=== PATIENT | female | born 1965 | race Caucasian/White ===

== ENCOUNTER → 2023-09-20 09:10 | Outpatient (REF) | payer OTHER, SELFPAY ==
[2023-09-20 20:17] LABS: Rubella Positive
[2023-09-20 20:31] LABS: Hepatitis B Surface Antibody Indeterminate
[2023-09-22 17:26] LABS: Quantiferon Mitogen minus NIL 3.73 IU/mL; Quantiferon NIL 0.02 IU/mL; Quantiferon TB Gold Plus Negative (Negative)
== END ==
LOC: OHS 09:10
PROVIDERS: ATTENDING PHYSICIAN Nurse Practitioner Family
DX: Z23 Encounter for immunization (principal)
CPT/HCPCS: 36415; 86480; 86706; 86735; 86762; 86765; 86787

== ENCOUNTER → 2023-11-14 08:36 | Outpatient (REF) | payer BC, SELFPAY ==
[2023-11-14 10:52] LABS: HDL Cholesterol 54 mg/dl; LDL Cholesterol, Calculated 98 mg/dl; Total Cholesterol 180 mg/dl (50-199); Triglyceride 142 mg/dl (10-149); Very Low Density Lipoprotein 28 mg/dl (0-30)
[2023-11-14 11:20] LABS: TSH Reflex To Free T4 1.21 uIU/ml (0.47-4.68)
== END ==
LOC: REG 08:36
PROVIDERS: ATTENDING PHYSICIAN Family Medicine
DX: Z13.29 Encounter for screening for other suspected endocrine disorder (principal)
CPT/HCPCS: 36415; 80061; 84443

== ENCOUNTER → 2023-12-14 12:15 | Outpatient (REF) | payer OTHER, SELFPAY ==
[2023-12-14 15:25] LABS: Hepatitis B Surface Antibody Positive
== END ==
LOC: OHS 12:15
PROVIDERS: ATTENDING PHYSICIAN Nurse Practitioner Family
DX: Z23 Encounter for immunization (principal)
CPT/HCPCS: 36415; 86706

== ENCOUNTER → 2024-02-04 16:58 | Outpatient (REF) | payer OTHER, SELFPAY ==
[2024-02-04 17:37] LABS: % Basophils 0.7 % (0-2); % Eosinophils 1.5 % (0-6); % Immature Granulocytes 0.2 % (0-0.5); % Lymphocytes 32.3 % (20.5-51.1); % Monocytes 6.2 % (1.7-9.3); % Neutrophils 59.1 % (42.2-75.2); Absolute Basophils 0.1 10^3/uL (0-0.2); Absolute Eosinophils 0.1 10^3/uL (0-0.7); Absolute Lymphocytes 2.9 10^3/uL (1.2-3.4); Absolute Monocytes 0.6 10^3/uL (0.1-0.6); Absolute Neutrophils 5.3 10^3/uL (1.4-6.5); Hematocrit 34.7 % (37.0-47.0); Hemoglobin 11.3 g/dL (12.0-16.0); Mean Corp Hgb Conc. 32.6 g/dL (33.0-37.0); Mean Corpuscular Hgb 27.8 pg (27.0-31.0); Mean Corpuscular Volume 85.5 fL (81.0-99.0); Mean Platelet Volume 9.9 fL (7.4-10.4); Nucleated Red Blood Cells % 0 %; Platelet Count 296 10^3/uL (130-400); Red Blood Cell Count 4.06 10^6/uL (4.20-5.40); Red Cell Dist. Width 13.2 % (11.5-14.5); White Blood Cell Count 8.9 10^3/uL (4.8-10.8)
[2024-02-04 18:01] LABS: ALT (SGPT) 16 U/L (0-35); AST (SGOT) 18 U/L (14-36); Albumin 4.3 g/dl (3.5-5.0); Alkaline Phosphatase 62 U/L (38-126); Blood Urea Nitrogen 12 mg/dl (7-17); Calcium 9.4 mg/dl (8.4-10.2); Carbon Dioxide 30 mmol/L (22-30); Chloride 101 mmol/L (98-107); Glucose 86 mg/dl (70-99); Potassium 4.2 mmol/L (3.5-5.1); Sodium 144 mmol/L (135-145); Total Bilirubin 0.3 mg/dl (0.2-1.3); Total Protein 6.8 g/dl (6.3-8.2); eGFR > 60.00
[2024-02-04 18:15] LABS: Vitamin D, 25-OH*** 28.6 ng/mL (30-80)
== END ==
LOC: REG 16:58
PROVIDERS: ATTENDING PHYSICIAN Internal Medicine Rheumatology
DX: M35.3 Polymyalgia rheumatica (principal); M79.7 Fibromyalgia; M81.0 Age-related osteoporosis without current pathological fracture; Z51.81 Encounter for therapeutic drug level monitoring; Z68.35 Body mass index [BMI] 35.0-35.9, adult
CPT/HCPCS: 36415; 80053; 82306; 85025

== ENCOUNTER → 2024-03-11 17:08 | Outpatient (REF) | payer BC, SELFPAY | LOC: RAD 17:08 | PROVIDERS: ATTENDING PHYSICIAN Nurse Practitioner | DX: R30.0 Dysuria (principal); M54.9 Dorsalgia, unspecified | CPT/HCPCS: 74019 ==

== ENCOUNTER → 2024-03-18 17:11 | Outpatient (REF) | payer BC, SELFPAY ==
[2024-03-18 18:06] LABS: ALT (SGPT) 18 U/L (0-35); AST (SGOT) 20 U/L (14-36); Albumin 4.4 g/dl (3.5-5.0); Alkaline Phosphatase 58 U/L (38-126); Blood Urea Nitrogen 14 mg/dl (7-17); Calcium 9.5 mg/dl (8.4-10.2); Carbon Dioxide 29 mmol/L (22-30); Chloride 100 mmol/L (98-107); Glucose 97 mg/dl (70-99); Potassium 4.5 mmol/L (3.5-5.1); Sodium 140 mmol/L (135-145); Total Bilirubin 0.2 mg/dl (0.2-1.3); eGFR > 60.00
[2024-03-18 18:07] LABS: % Basophils 0.6 % (0-2); % Eosinophils 1.3 % (0-6); % Immature Granulocytes 0.2 % (0-0.5); % Lymphocytes 32.3 % (20.5-51.1); % Monocytes 5.8 % (1.7-9.3); % Neutrophils 59.8 % (42.2-75.2); Absolute Basophils 0.1 10^3/uL (0-0.2); Absolute Eosinophils 0.1 10^3/uL (0-0.7); Absolute Lymphocytes 2.7 10^3/uL (1.2-3.4); Absolute Monocytes 0.5 10^3/uL (0.1-0.6); Absolute Neutrophils 4.9 10^3/uL (1.4-6.5); Hematocrit 34.5 % (37.0-47.0); Hemoglobin 11.5 g/dL (12.0-16.0); Mean Corp Hgb Conc. 33.3 g/dL (33.0-37.0); Mean Corpuscular Hgb 28.1 pg (27.0-31.0); Mean Corpuscular Volume 84.4 fL (81.0-99.0); Mean Platelet Volume 9.8 fL (7.4-10.4); Nucleated Red Blood Cells % 0 %; Platelet Count 320 10^3/uL (130-400); Red Blood Cell Count 4.09 10^6/uL (4.20-5.40); Red Cell Dist. Width 13.2 % (11.5-14.5); White Blood Cell Count 8.2 10^3/uL (4.8-10.8)
[2024-03-19 08:55] LABS: Glycohemoglobin (HgbA1c) 5.8 % (4.0-5.6)
== END ==
LOC: REG 17:11
PROVIDERS: ATTENDING PHYSICIAN Internal Medicine Endocrinology, Diabetes & Metabolism
DX: R73.03 Prediabetes (principal)
CPT/HCPCS: 36415; 80053; 83036; 85025

== ENCOUNTER → 2024-05-19 17:10 | Outpatient (REF) | payer BC, SELFPAY ==
[2024-05-19 17:47] LABS: % Basophils 0.6 % (0-2); % Eosinophils 1.2 % (0-6); % Immature Granulocytes 0.1 % (0-0.5); % Lymphocytes 30.7 % (20.5-51.1); % Monocytes 5.9 % (1.7-9.3); % Neutrophils 61.5 % (42.2-75.2); Absolute Basophils 0.1 10^3/uL (0-0.2); Absolute Eosinophils 0.1 10^3/uL (0-0.7); Absolute Lymphocytes 2.7 10^3/uL (1.2-3.4); Absolute Monocytes 0.5 10^3/uL (0.1-0.6); Absolute Neutrophils 5.5 10^3/uL (1.4-6.5); Hematocrit 35.9 % (37.0-47.0); Hemoglobin 11.6 g/dL (12.0-16.0); Mean Corp Hgb Conc. 32.3 g/dL (33.0-37.0); Mean Corpuscular Hgb 28.4 pg (27.0-31.0); Nucleated Red Blood Cells % 0 %; Platelet Count 319 10^3/uL (130-400); Red Blood Cell Count 4.08 10^6/uL (4.20-5.40); Red Cell Dist. Width 13.2 % (11.5-14.5); White Blood Cell Count 8.9 10^3/uL (4.8-10.8)
[2024-05-19 17:59] LABS: ALT (SGPT) 18 U/L (0-35); AST (SGOT) 21 U/L (14-36); Albumin 4.3 g/dl (3.5-5.0); Alkaline Phosphatase 65 U/L (38-126); Blood Urea Nitrogen 12 mg/dl (7-17); Calcium 9.2 mg/dl (8.4-10.2); Carbon Dioxide 31 mmol/L (22-30); Chloride 101 mmol/L (98-107); Glucose 112 mg/dl (70-99); Iron 75 ug/dl (37-170); Potassium 4.2 mmol/L (3.5-5.1); Sodium 138 mmol/L (135-145); Total Bilirubin 0.2 mg/dl (0.2-1.3); Total Protein 6.8 g/dl (6.3-8.2); eGFR > 60.00
[2024-05-19 18:08] LABS: Percent Saturation 25 % (20-50); Total Iron Binding Capacity 299 ug/dl (265-497)
[2024-05-19 18:32] LABS: Ferritin 65.9 ng/ml (11.1-264.0)
== END ==
LOC: REG 17:10
PROVIDERS: ATTENDING PHYSICIAN Internal Medicine Rheumatology; FAMILY PHYSICIAN Nurse Practitioner
DX: E55.9 Vitamin D deficiency, unspecified (principal); M35.3 Polymyalgia rheumatica; M47.812 Spondylosis without myelopathy or radiculopathy, cervical region; M54.50 Low back pain, unspecified; M79.7 Fibromyalgia; M81.0 Age-related osteoporosis without current pathological fracture; Z51.81 Encounter for therapeutic drug level monitoring
CPT/HCPCS: 36415; 80053; 82728; 83540; 83550; 85025

== ENCOUNTER → 2024-05-22 07:17 | Outpatient (REF) | payer BC, SELFPAY | LOC: HWRAD 07:17 | PROVIDERS: ATTENDING PHYSICIAN Neurological Surgery; FAMILY PHYSICIAN Family Medicine | DX: M47.812 Spondylosis without myelopathy or radiculopathy, cervical region (principal); Z98.1 Arthrodesis status | CPT/HCPCS: 72125 ==

== ENCOUNTER → 2024-08-29 06:51 | Outpatient (REF) | payer BC, SELFPAY ==
[2024-08-29 09:58] LABS: % Basophils 0.9 % (0-2); % Eosinophils 1.3 % (0-6); % Immature Granulocytes 0.1 % (0-0.5); % Lymphocytes 26.8 % (20.5-51.1); % Monocytes 5.2 % (1.7-9.3); % Neutrophils 65.7 % (42.2-75.2); Absolute Basophils 0.1 10^3/uL (0-0.2); Absolute Eosinophils 0.1 10^3/uL (0-0.7); Absolute Monocytes 0.4 10^3/uL (0.1-0.6); Absolute Neutrophils 4.9 10^3/uL (1.4-6.5); Hematocrit 36.8 % (37.0-47.0); Hemoglobin 12.1 g/dL (12.0-16.0); Mean Corp Hgb Conc. 32.9 g/dL (33.0-37.0); Mean Corpuscular Hgb 28.7 pg (27.0-31.0); Mean Corpuscular Volume 87.2 fL (81.0-99.0); Mean Platelet Volume 10.4 fL (7.4-10.4); Nucleated Red Blood Cells % 0 %; Platelet Count 301 10^3/uL (130-400); Red Blood Cell Count 4.22 10^6/uL (4.20-5.40); Red Cell Dist. Width 12.6 % (11.5-14.5); White Blood Cell Count 7.5 10^3/uL (4.8-10.8)
[2024-08-29 10:33] LABS: Glycohemoglobin (HgbA1c) 5.7 % (4.0-5.6)
[2024-08-29 12:18] LABS: ALT (SGPT) 15 U/L (0-35); AST (SGOT) 18 U/L (14-36); Albumin 4.5 g/dl (3.5-5.0); Alkaline Phosphatase 70 U/L (38-126); Blood Urea Nitrogen 11 mg/dl (7-17); Calcium 9.2 mg/dl (8.4-10.2); Carbon Dioxide 28 mmol/L (22-30); Chloride 102 mmol/L (98-107); Glucose 98 mg/dl (70-99); HDL Cholesterol 44 mg/dl; LDL Cholesterol, Calculated 71 mg/dl; Potassium 3.8 mmol/L (3.5-5.1); Sodium 143 mmol/L (135-145); Total Bilirubin 0.6 mg/dl (0.2-1.3); Total Cholesterol 137 mg/dl (50-199); Total Protein 7.1 g/dl (6.3-8.2); Triglyceride 110 mg/dl (10-149); Very Low Density Lipoprotein 22 mg/dl (0-30); eGFR > 60.00
== END ==
LOC: HWLAB 06:51
PROVIDERS: ATTENDING PHYSICIAN Internal Medicine Rheumatology; OTHER PHYSICIAN Internal Medicine Endocrinology, Diabetes & Metabolism; REFERRING PHYSICIAN Internal Medicine Cardiovascular Disease
DX: E78.2 Mixed hyperlipidemia (principal); M35.3 Polymyalgia rheumatica; M54.50 Low back pain, unspecified; M79.7 Fibromyalgia; Z51.81 Encounter for therapeutic drug level monitoring; R73.03 Prediabetes
CPT/HCPCS: 36415; 80053; 80061; 83036; 85025

== ENCOUNTER → 2024-09-17 10:03 | Outpatient (REF) | payer BC, SELFPAY | LOC: RAD 10:03 | PROVIDERS: ATTENDING PHYSICIAN Internal Medicine Rheumatology; FAMILY PHYSICIAN Family Medicine | DX: M81.0 Age-related osteoporosis without current pathological fracture (principal) | CPT/HCPCS: 77080 ==

== ENCOUNTER → 2024-09-23 18:57 | Outpatient (REF) | payer BC, SELFPAY | LOC: WDC 18:57 | PROVIDERS: ATTENDING PHYSICIAN Obstetrics & Gynecology; FAMILY PHYSICIAN Nurse Practitioner | DX: Z12.31 Encounter for screening mammogram for malignant neoplasm of breast (principal) | CPT/HCPCS: 77063; 77067 ==

== ENCOUNTER → 2024-10-27 12:46 | Outpatient (REF) | payer OTHER, SELFPAY | LOC: RAD 12:46 | PROVIDERS: ATTENDING PHYSICIAN Nurse Practitioner Family; FAMILY PHYSICIAN Family Medicine | DX: M25.511 Pain in right shoulder (principal) | CPT/HCPCS: 73030 ==

== ENCOUNTER → 2025-02-05 20:16 | Outpatient (REF) | payer BC, SELFPAY | LOC: MRI 20:16 | PROVIDERS: ATTENDING PHYSICIAN Psychiatry & Neurology Neurology; PRIMARYCARE PHYSICIAN Family Medicine | DX: M54.12 Radiculopathy, cervical region (principal) | CPT/HCPCS: 72156; A9575 ==

== ENCOUNTER 2025-03-30 08:02 | Emergency (ER) | payer BC, SELFPAY ==
[2025-03-30 08:16] VITALS: BP 157/87
--- NOTE | 2025-03-30 08:28 | ED.GENMED ---
History of Present Illness
General
Chief Complaint: Cardiac Symptoms
Time Seen by Provider: 03/30/25 08:26
Nursing documentation reviewed up to this point in time: agreed with
History of Present Illness
History of Present Illness:
59-year-old female presents to the ER for evaluation of feeling of fast heart rate over the past 3 days. Symptoms have been occurring intermittently. She reports associated nausea. No syncope or trauma. Patient has been eating and drinking
normally. She is currently on Zepbound and has lost 45 pounds. She had previously been on both telmisartan and Nebivolol but has been off of these medications for the past several months due to hypotension and resolution of her previously
perceived palpitations. She does routinely see Dr. Knott from cardiology as her father had his first NC in his 50s. She denies any prior personal history of ACS. Patient denies any symptoms at time of interview. She has also intermittently
been experiencing some left elbow pain which may or may not be related to her palpitations. She denies any recent travel. No prior personal history of venous thromboembolism. She denies any calf pain or swelling. She drinks soda, but no reported
change in caffeine intake. She denies any gdez-pry-gwawfgs medication use. She denies any fevers chills or other concerns today. She reports during the episode that she experienced on Sunday her Fitbit noted her heart rate to be 140
Review of Systems
Review of Systems
Allergies reviewed?: Yes
Phy Exam
Physical Exam
Physical Exam:
Patient is awake, alert, appears in no acute distress, head is NCAT, PERRL, EOMI mucous membranes moist, conjunctiva pink, heart regular rate and rhythm without murmurs or ectopy, lungs are clear to auscultation without wheezes rales or rhonchi, no
JVD, abdomen is soft and nontender on palpation, extremities without edema, GCS is 15
Course
Orders/Labs/Results
Orders:
Orders
03/30/25 08:11
Electrocardiogram (*1) Urgent
Reason for Study: Chest Pain
03/30/25 08:12
EKG- Treatment ONCE
03/30/25 08:27
Cardiac Monitoring- Treatment ONCE
03/30/25 08:28
CR Chest - 2 Views Urgent
Comment:
Reason For Exam: palpitations
03/30/25 08:39
Complete Blood Count/With Diff Urgent
Comprehensive Metabolic Panel Urgent
Magnesium Urgent
PTT Urgent
Prothrombin Time Urgent
TSH Urgent
Troponin I Urgent
Abnormal Lab Results
03/30/25
08:39
Absolute Neuts (auto) 6.9 H 10^3/uL
(1.4-6.5)
Sodium 134 L mmol/L
(135-145)
03/30/25 08:39
03/30/25 08:39
CBC within normal limits. No anemia. No significant electrolyte dyscrasia
Vital Signs
Initial and Last Documented VS:
Initial Vital Signs
Temp Pulse Resp BP Pulse Ox
98.0 F 84 16 157/87 98
03/30/25 08:16 03/30/25 08:16 03/30/25 08:16 03/30/25 08:16 03/30/25 08:16
Last Documented Vital Signs
Temp Pulse Resp BP Pulse Ox
98.0 F 84 16 157/87 98
03/30/25 08:16 03/30/25 08:16 03/30/25 08:16 03/30/25 08:16 03/30/25 08:29
MDM/Problems Addressed
Differential Diagnosis Includes:
Differential diagnosis to consider but not limited to SVT, A-fib, PACs, acute kidney injury, electrolyte dyscrasia, GERD, along with other etiologies considered
Chronic conditions affecting care:
Hypertension, anxiety, prior tobacco use
*Radiology
Radiology exam reviewed: preliminary read by ED provider (I independently viewed and interpreted two-view chest showing clear lungs, normal cardiac silhouette) and radiology read reviewed (Radiology interpretation is in agreement, no acute process)
*Pulse Oximetry
SaO2: 98
Oxygen Mode of Delivery: Room air
Patient hypoxic: no
*EKG
Interpreted by ED Provider?: Yes (I independently viewed and interpreted twelve-lead EKG showing normal sinus rhythm, rate 86, normal axis, incomplete right bundle branch block, this is a nonspecific EKG without evidence for acute ischemia or
arrhythmia)
*Polishing Pad Mounter Interpretation
Rate: normal (I independently viewed and interpreted rhythm strip showing normal sinus rhythm, incomplete right bundle branch block)
*Critical Care Note
Total Time (30-74mins, 75-104mins- exclusive of procedures): Not Applicable
Update Note
Update Note:
Patient without symptoms at the current time. I discussed with patient and significant other present at bedside very reassuring EKG. Patient was placed on the monitor during time of interview. Will continue to monitor while awaiting screening
labs and chest x-ray. They agree with plan at current
1028: Patient resting comfortably throughout time in the emergency department. No recurrent symptoms while here. I reviewed the monitor data-no arrhythmias seen. I discussed with patient very reassuring labs, negative troponin, normal chest
x-ray. 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 She and her present at bedside expressed understanding of discharge plan and had no questions prior to the
department.
ED Attending Note
-
Portions of this chart may have been created with voice recognition software.� Occasional wrong word or��sound alike� substitutions may have occurred due to the inherent limitations of voice recognition software.
Discharge Plan
Departure
Patient Disposition: Home (Routine Discharge)
Date of Disposition: 03/30/25
Time of Disposition: 10:26
Patient with high blood pressure during this ER visit?: Yes
Discharge Problem:
Heart palpitations
Instructions: Palpitations - ED (DC), BLOOD PRESSURE
Referrals:
Ye Dorsey MD [Active, Cardiology] - Next open appointment
Discharge Problem: Heart palpitations
Linda Reyes DO [Family Provider, Family Practice]
Activity Restrictions/Additional Instructions:
Encourage fluids. Please contact your cardiology office today to schedule appointment for Holter monitor and reevaluation. Return to the ER for any concern
Interventions
Interventions:
*Risk Screen - Suicide Last Done: 03/30/25 08:16
*General Assessment Last Done: 03/30/25 08:16
*Neglect/Abuse Screening Last Done: 03/30/25 08:16
Discharge Date and Time
Print Language: [id number]
[2025-03-30 09:06] LABS: Hematocrit 37.2 % (37.0-47.0); Hemoglobin 12.3 g/dL (12.0-16.0); INR 0.96; Mean Corp Hgb Conc. 33.1 g/dL (33.0-37.0); Mean Corpuscular Volume 87.1 fL (81.0-99.0); Nucleated Red Blood Cells % 0 %; PT 13.1 Sec (11.4-14.6); Platelet Count 353 10^3/uL (130-400); Red Cell Dist. Width 13.1 % (11.5-14.5)
[2025-03-30 09:07] LABS: APTT 25.2 Sec (23.4-35.0)
[2025-03-30 09:16] LABS: ALT (SGPT) 26 U/L (0-35); AST (SGOT) 18 U/L (14-36); Albumin 4.4 g/dl (3.5-5.0); Alkaline Phosphatase 52 U/L (38-126); Blood Urea Nitrogen 15 mg/dl (7-17); Calcium 9.1 mg/dl (8.4-10.2); Carbon Dioxide 30 mmol/L (22-30); Chloride 101 mmol/L (98-107); Glucose 81 mg/dl (70-99); Magnesium 2.2 mg/dl (1.6-2.3); Potassium 3.8 mmol/L (3.5-5.1); Sodium 134 mmol/L (135-145); Total Protein 7.1 g/dl (6.3-8.2); eGFR > 60.00
[2025-03-30 09:26] LABS: Troponin I < 0.012 ng/ml
[2025-03-30 09:45] LABS: TSH 1.09 uIU/ml (0.47-4.68)
== END 2025-03-30 10:48 | disposition home or self-care (01) ==
LOC: EMR 08:02
PROVIDERS: EMERGENCY PHYSICIAN Emergency Medicine; FAMILY PHYSICIAN Family Medicine
DX: R00.2 Palpitations (principal); I45.10 Unspecified right bundle-branch block; I10 Essential (primary) hypertension; Z87.891 Personal history of nicotine dependence
CPT/HCPCS: 99285; 71046; 80053; 83735; 84443; 84484; 85025; 85610; 85730; 93005

== ENCOUNTER → 2025-04-01 08:42 | Outpatient (REF) | payer BC, SELFPAY | LOC: RCS 08:42 | PROVIDERS: ATTENDING PHYSICIAN Student in an Organized Health Care Education/Training Program; FAMILY PHYSICIAN Family Medicine | DX: R00.2 Palpitations (principal) | CPT/HCPCS: 93225; 93226 ==